=== PATIENT | female | born 1990 | race Caucasian/White ===

== ENCOUNTER 2024-02-14 12:31 | Emergency (ER) | payer SELFPAY | END 2024-02-14 15:40 | disposition left against medical advice (07) | LOC: JD.ED 12:31 | DX: Z53.21 Procedure and treatment not carried out due to patient leaving prior to being seen by health care provider (principal) ==

== ENCOUNTER 2024-02-15 16:40 | Emergency (ER) | payer MEDICAID ==
[2024-02-15 17:31] LABS: BASOPHILS PERCENT AUTO 0.1 % (0.0-1.0); EOSINOPHILS PERCENT AUTO 0.2 % (0.0-6.0); HEMATOCRIT 35.7 % (37.0-47.0); HEMOGLOBIN 12.2 gm/dl (12.0-16.0); IMMATURE GRAN ABSOLUTE AUTO 0.06 K/mm3 (0.00-0.05); IMMATURE GRAN PERCENT AUTO 0.4 % (0.0-0.4); LYMPHOCYTES ABSOLUTE AUTO 1.1 K/mm3 (1.0-4.8); MEAN CORPUSCULAR HEMOGLOBIN 28.8 pg (28.0-32.0); MEAN CORPUSCULAR HGB CONC 34.2 g/dl (32.0-36.0); MEAN CORPUSCULAR VOLUME 84.4 fl (83.0-99.0); MEAN PLATELET VOLUME 9.4 fl (9.4-12.3); MONOCYTES ABSOLUTE AUTO 1.9 K/mm3 (0.0-0.8); MONOCYTES PERCENT AUTO 12.3 % (0.0-8.0); NEUTROPHILS ABSOLUTE AUTO 12.1 K/mm3 (1.8-7.7); PLATELET COUNT,PLT 335 K/mm3 (150-400); RED BLOOD CELL COUNT 4.23 M/mm3 (4.10-5.30); WHITE BLOOD CELL COUNT,WBC 15.09 K/mm3 (3.9-11.3)
[2024-02-15] MEDS: Sodium Chloride 0.9% 1,000 ML IV ONE (17:34)
[2024-02-15 17:45] LABS: CORONAVIRUS COVID-19 NAA POSITIVE (NEGATIVE); INFLUENZA A NAA NEGATIVE (NEGATIVE); RESPIRATORY SYNCYTIAL VIR NAA NEGATIVE (NEGATIVE)
[2024-02-15 17:51] LABS: A/G RATIO 0.7 (1-2); ANION GAP 15.6 (5-15); BILIRUBIN TOTAL 0.7 mg/dL (0.2-1.0); BUN/CREATININE RATIO 12.2 (14-18); C-REACTIVE PROTEIN 16.74 mg/dL (<0.30); CALCIUM 8.6 mg/dL (8.5-10.1); CREATININE 0.9 mg/dL (0.55-1.02); EST CRCL DRUG DOSING (CG) 86.46 mL/min; POTASSIUM,K 3.6 mEq/L (3.5-5.1); PROTEIN TOTAL,TP 7.3 g/dl (6.4-8.2)
[2024-02-15] MEDS: Sodium Chloride 0.9% 10 ML Syringe FLUSH PRN (18:18)
[2024-02-15] MEDS: Azithromycin 250 MG Tab PO ONE (18:50)
[2024-02-15 18:53] LABS: APPEARANCE,URINE CLOUDY (Clear); BILIRUBIN,URINE 1+ (Negative); COLOR,URINE YELLOW (Yellow); GLUCOSE,URINE NEGATIVE (Negative); KETONES,URINE 2+ (Negative); LEUKOCYTE ESTERASE,URINE 3+ (Negative); NITRITE,URINE POSITIVE (Negative); OCCULT BLOOD,URINE 2+ (Negative); PROTEIN,URINE 3+ (Negative); UROBILINOGEN,URINE >=8.0 (0.2-1.0)
[2024-02-15 19:07] LABS: BACTERIA,URINE MANY /hpf (FEW); MUCUS,URINE FEW /hpf (FEW); RBC,URINE 20-30 /hpf (0-5); SQUAMOUS EPITHELIAL CELLS,UR 20-30 /hpf (0-5); WBC,URINE >100 /hpf (0-5); YEAST,URINE FEW (NOT SEEN)
[2024-02-15] MEDS ORDERED: Sulfamethoxazole/Trimethoprim 800-160 MG Tab PO ONE (19:09)
== END 2024-02-15 18:58 | disposition home or self-care (01) ==
LOC: JD.ED 16:40
DX: U07.1 COVID-19 (principal); Z88.0 Allergy status to penicillin; Z79.899 Other long term (current) drug therapy
CPT/HCPCS: 0241U; 36415; 71046; 80053; 81001; 84703; 85025; 86140; 96360; 99283; A9270; J3490; J7030; 99284

== ENCOUNTER 2024-02-16 13:56 | Emergency (ER) | payer MEDICAID ==
[2024-02-16] MEDS: Prochlorperazine 10 MG/2 ML SDV IM ONE (14:43)
[2024-02-16] MEDS: Acetaminophen/HYDROcodone 325-5 MG Tab PO ONE (14:57)
[2024-02-16] MEDS: Levofloxacin 500 MG Tab PO ONE (14:57)
== END 2024-02-16 15:53 | disposition home or self-care (01) ==
LOC: JD.ED 13:56
DX: U07.1 COVID-19 (principal); N30.00 Acute cystitis without hematuria; Z79.899 Other long term (current) drug therapy; Z88.0 Allergy status to penicillin
CPT/HCPCS: 96372; 99283; A9270; J0780